=== PATIENT | male | born 1995 | race Caucasian/White ===

== ENCOUNTER 2020-07-18 00:15 | Emergency (ER) | payer BC, OTHER ==
--- NOTE | 2020-07-18 01:24 | ERPHSYRPT ---
- History of Present Illness Time Seen by Provider: 07/18/20 01:15 Exam Limitations: no limitations Physician History: The patient is a 24-year-old male who presents with a chief complaint of rectal bleeding. Onset reportedly was this evening. He reportedly was having a bowel movement when he noticed some blood in the toilet and whenever he wiped he noticed blood on the toilet tissue. He denies prior episodes of rectal bleeding in the past. He reportedly has no history of external or internal hemorrhoids to his knowledge. He denies straining event, abdominal pain, fever, chills, history of inflammatory bowel disease or family history of inflammatory bowel disease, anticoagulant use or NSAID use. He currently does not have the urge to have a bowel movement and reportedly has not had any recent travel or diarrhea before the onset of his rectal bleeding. Associated Symptoms: other (Rectal bleeding ) Allergies/Adverse Reactions: No Known Drug Allergies Allergy (Unverified 07/18/20 01:14) - Review of Systems Constitutional: No Fever, No Chills Abdominal/Gastrointestinal: Other (Rectal bleeding), No Abdominal Pain, No Nausea, No Vomiting, No Diarrhea, No Constipation Skin: No Symptoms Neurological: No Symptoms Psychological: No Symptoms Endocrine: No Symptoms Hematologic/Lymphatic: No Symptoms All Other Systems: Reviewed and Negative - Past Medical History Pertinent Past Medical History: No Neurological History: No Pertinent History ENT History: No Pertinent History Cardiac History: No Pertinent History Respiratory History: No Pertinent History Endocrine Medical History: No Pertinent History Musculoskeletal History: No Pertinent History GI Medical History: No Pertinent History History: No Pertinent History Psycho-Social History: No Pertinent History - Past Surgical History Past Surgical History: Yes Neuro Surgical History: No Pertinent History Cardiac: No Pertinent History Respiratory: No Pertinent History Gastrointestinal: No Pertinent History Genitourinary: No Pertinent History Musculoskeletal: No Pertinent History Other Surgical History: HX Right groin surgery to remove Fungas - Social History Drug Use: none - Nursing Vital Signs Nursing Vital Signs: Initial Vital Signs Temperature 98.5 F 07/18/20 01:11 Pulse Rate 75 07/18/20 01:11 Respiratory Rate 18 07/18/20 01:11 Blood Pressure 129/68 07/18/20 01:11 O2 Sat by Pulse Oximetry 97 07/18/20 01:11 Pain Scale Pain Intensity 0 - Physical Exam General Appearance: no apparent distress, obese Eye Exam: PERRL/EOMI, eyes nml inspection, No scleral icterus, No pale conjunctivae Ears, Nose, Throat Exam: moist mucous membranes, No pharyngeal erythema, No tonsillar exudate Neck Exam: normal inspection, supple, midline tenderness, No JVD Respiratory Exam: normal breath sounds, lungs clear, airway intact, No respiratory distress, No diminished breath sounds Cardiovascular Exam: regular rate/rhythm, normal heart sounds, normal peripheral pulses, capillary refill <2 sec, No murmur, No friction rub, No gallop, No edema Gastrointestinal/Abdomen Exam: soft, No tenderness, No distention, No mass, No guarding Rectal Exam: blood, other (No evidence of external hemorhoids or anal fissure. Ursula of blood noted to the perianal region) Back Exam: normal inspection Extremity Exam: normal inspection Neurologic Exam: alert, oriented x 3 Skin Exam: normal color, warm, dry, No rash, No petechiae, No jaundice SpO2 Interpretation: normal SpO2: 97 O2 Delivery: Room Air Ordered Tests: Active Orders 24 hr Category Date Time Status CBC W DIFF Stat Lab 07/18/20 01:40 Completed Lab/Rad Data: Laboratory Result Diagrams 07/18/20 01:40 Laboratory Results 07/18/20 Range/Units 01:40 WBC 8.1 (4.0-10.5) K/mm3 RBC 4.86 (4.1-5.6) M/mm3 Hgb 14.0 (12.5-18.0) gm/dl Hct 42.3 (42-50) % MCV 87.0 (78-100) fl MCH 28.8 (26-32) pg MCHC 33.1 (32-36) g/dl RDW 13.1 (11.5-14.0) % Plt Count 273 (150-450) K/mm3 MPV 9.6 (7.5-11.0) fl Gran % 51.8 (36.0-66.0) % Eos # (Auto) 0.38 (0-0.5) Absolute Lymphs (auto) 2.87 (1.0-4.6) Absolute Monos (auto) 0.61 (0.0-1.3) Lymphocytes % 35.4 (24.0-44.0) % Monocytes % 7.5 (0.0-12.0) % Eosinophils % 4.7 (0.00-5.0) % Basophils % 0.6 (0.0-0.4) % Absolute Granulocytes 4.20 (1.4-6.9) Basophils # 0.05 (0-0.4) - Progress Progress: unchanged Progress Note: 07/18/20 02:51 Nontoxic in appearance. Currently, the patient has no active rectal bleeding at this time and had no bowel movements in the emergency department. Differentials time includes rectal bleeding from possible internal hemorrhoids and I currently have a low suspicion for inflammatory bowel disease or malignancy at this time. However, I stressed the importance of outpatient follow-up for further evaluation and management, specifically with his primary care provider and if necessary his primary care provider can arrange gastroenterology follow-up for possible imaging or endoscopy or colonoscopy for further evaluation and management., Specifically a CBC was checked eval for evidence of anemia which was negative for such and there is no evidence of leukocytosis to support an infectious etiology. I currently have a low suspicion for inflammatory bowel disease given his lack of anemia at this time. Counseled pt/family regarding: lab results, diagnosis, need for follow-up - Departure Departure Disposition: Home Clinical Impression: Rectal bleeding Condition: Stable Critical Care Time: No Referrals: DEBBIE TAI [Primary Care Provider] - Instructions: Bloody Stools, Adult (DC) Prescriptions: Docusate Sodium 100 mg [Colace 100 MG] 100 mg PO BID #60 cap
[2020-07-18 01:45] LABS: BASOPHIL % 0.6 % (0.0-0.4); Basophil (Absolute #) 0.05 (0-0.4); Eosinophil % 4.7 % (0.00-5.0); Eosinophil (Absolute #) 0.38 (0-0.5); Hematocrit 42.3 % (42-50); Lymphocyte (Absolute #) 2.87 (1.0-4.6); Lymphocytes % 35.4 % (24.0-44.0); Mean Corpuscular Hemoglobin 28.8 pg (26-32); Mean Corpuscular Hgb Concent. 33.1 g/dl (32-36); Mean Platelet Volume 9.6 fl (7.5-11.0); Monocyte (Absolute #) 0.61 (0.0-1.3); Monocytes % 7.5 % (0.0-12.0); Neutrophil % 51.8 % (36.0-66.0); Platelet Count 273 K/mm3 (150-450); Red Blood Count 4.86 M/mm3 (4.1-5.6); Red Cell Distribution Width 13.1 % (11.5-14.0); White Blood Count 8.1 K/mm3 (4.0-10.5)
[2020-07-18 02:07] VITALS: BP 113/59; PULSE 58
[2020-07-18 02:27] VITALS: O2SAT 97
== END 2020-07-18 02:20 | disposition home or self-care (01) ==
LOC: ED 00:15
DX: K62.5 Hemorrhage of anus and rectum (principal)
CPT/HCPCS: 36415; 85025; 99283